=== PATIENT | male | born 1980 | race Caucasian/White ===

== ENCOUNTER 2024-09-19 09:21 | Emergency (ER) | payer MEDICAID ==
[~2024-09-19] VITALS: Ht 193 cm; Wt 99.3 kg
[2024-09-19 12:29] VITALS: BP 123/76; PULSE 71; RESP 16; TEMP 97.3; O2SAT 99
[2024-09-19 12:52] LABS: BILIRUBIN,URINE NEGATIVE (Neg); CLARITY,URINE CLEAR (Clear); COLOR,URINE YELLOW (Yellow); GLUCOSE, URINE NEGATIVE (Neg); KETONES,URINE NEGATIVE (Neg); LEUKOCYTE ESTERASE ,URINE NEGATIVE (Neg); NITRITES, URINE NEGATIVE (Neg); OCCULT BLOOD,URINE NEGATIVE (Neg); PROTEIN,URINE NEGATIVE (Neg); UROBILINOGEN,URINE 0.2 E.U/dL (0.2-1.0)
[2024-09-19 13:01] LABS: UA COLLECTION TYPE CLN CATCH MIDSTREAM
== END 2024-09-19 12:26 | disposition home or self-care (01) ==
LOC: ER 09:22
DX: N43.3 Hydrocele, unspecified (principal); Z88.0 Allergy status to penicillin
CPT/HCPCS: 76870; 81003; 87081; 93976; 99284